=== PATIENT | male | born 1960 ===

== ENCOUNTER → 2022-10-12 | Day surgery (SDC) | payer OTHER ==
[~2022-10-12] VITALS: Ht 160 cm; Wt 90.9 kg
[~2022-10-12] MED LIST: BUPIVACAINE HCL/PF 0.5% 30 ML VIAL ONE; BUPIVACAINE LIPOSOME/PF 1.3%-13.3MG/ML SUSPENSION 20 ML VIAL INJ ONE; CeFAZolin 2 GM/DEXTROSE 50 ML IV ONE; ETHYL ALCOHOL 62% ANTISEPTIC NASAL SANITIZER 0.6 ML AMPUL NASAL ONE; RINGERS SOLUTION,LACTATED 1,000 ML IV ONE; VANCOMYCIN HCL 1 GM/VIAL ONE
[2022-10-12 08:31] LABS: GLUCOMETER DEV NAME(LOC) SDS.; GLUCOSE,POINT OF CARE 93 MG/DL (70-110)
[2022-10-12 11:15] LABS: BILIRUBIN,DIRECT 0.2 mg/dL (0.00-0.20); BILIRUBIN,TOTAL 0.5 mg/dL (0.1-1.0); TOTAL PROTEIN, SERUM 6.9 g/dL (6.4-8.2)
== END | disposition still patient (30) ==
LOC: SURGERY 07:14
PROVIDERS: ATTEND Orthopaedic Surgery Orthopaedic Surgery of the Spine
DX: M54.9 Dorsalgia, unspecified (principal); Z53.8 Procedure and treatment not carried out for other reasons; M54.16 Radiculopathy, lumbar region; Z79.899 Other long term (current) drug therapy
CPT/HCPCS: 36415; 80076; 87081; 82962; J3490; J3370; J7120; C9290